=== PATIENT | male | born 1980 | race African-American/Black ===

== ENCOUNTER 2017-01-08 19:43 | Emergency (ER) | payer OTHER ==
[~2017-01-08] VITALS: Ht 170.2 cm; Wt 86.2 kg
[~2017-01-08 19:43] MED LIST: ALBUTEROL SULF8.5 GM INH; CLINDAMYCIN HC300 MG ORAL; IBUPROFEN600 MG ORAL; IBUPROFEN800 MG ORAL; NKM; NORCO 5-325 TA1 EACH ORAL; ZOFRAN ODT4 MG ORAL
[2017-01-08] MEDS ORDERED: NKM (19:56)
[2017-01-08] MEDS ORDERED: Dexamethasone 20mg/5ml IM ONE (20:15)
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
[2017-01-08 20:59] VITALS: BP_SYST 121; BP_SYST 128; BP_DIAS 75; BP_DIAS 80
== END 2017-01-08 20:59 | disposition home or self-care (01) ==
LOC: EMR 20:16
DX: J02.9 Acute pharyngitis, unspecified (principal)
CPT/HCPCS: 96372; 99284; J1100

== ENCOUNTER 2017-09-12 12:28 | Emergency (ER) | payer OTHER ==
[~2017-09-12] VITALS: Ht 167.6 cm; Wt 95.7 kg
[2017-09-12] MEDS ORDERED: Methocarbamol 500mg tab ORAL ONE (13:00)
[2017-09-12] MEDS ORDERED: Acetaminophen 500mg (ES) tab ORAL ONE (13:00)
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
[2017-09-12] MEDS ORDERED: PROMETHAZI6.25 MG/1 ORAL (14:02)
[2017-09-12] MEDS ORDERED: ROBAXIN500 MG PO (14:02)
[2017-09-12] MEDS ORDERED: TYLENOL EXTRA500 MG ORAL (14:02)
[2017-09-12 14:25] VITALS: BP_SYST 132; BP_SYST 143; BP_DIAS 105; BP_DIAS 92
--- NOTE | 2017-09-13 11:19 | Diagnostic Imaging Report ---
Indication: Dyspnea Comparison: None A single view chest radiograph was obtained. Findings: Cardiomediastinal appearance is within normal limits for age. Pulmonary vascularity is appropriate. The diaphragmatic contour is smooth and costophrenic angles are sharp. No pleural effusions are identified. The bones are unremarkable. Impression: No acute findings
== END 2017-09-12 14:25 | disposition home or self-care (01) ==
LOC: EMR 13:20
DX: M54.9 Dorsalgia, unspecified (principal); R05 Cough
CPT/HCPCS: 71045; 99284

== ENCOUNTER 2017-11-12 17:01 | Emergency (ER) | payer OTHER ==
[~2017-11-12] VITALS: Ht 167.6 cm; Wt 88.5 kg
[~2017-11-12 17:01] MED LIST changes: +PROMETHAZI6.25 MG/1 ORAL; +ROBAXIN500 MG PO; +TYLENOL EXTRA500 MG ORAL
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
[2017-11-12] MEDS ORDERED: Lidocaine 1% MPF 10mg/ml 5ml INJ ONE (18:00)
[2017-11-12] MEDS ORDERED: VIBRAMYCIN100 MG ORAL (18:01)
[2017-11-12] MEDS ORDERED: IBUPROFEN600 MG ORAL (18:01)
[2017-11-12] MEDS ORDERED: MUPIROCIN22 GM TOPIC (18:01)
[2017-11-12 18:04] VITALS: BP 124/77
[2017-11-12 18:22] VITALS: BP 124/77
== END 2017-11-12 18:23 | disposition home or self-care (01) ==
LOC: EMR 17:30
DX: L73.9 Follicular disorder, unspecified (principal)
CPT/HCPCS: 96372; 99284; J0696

== ENCOUNTER 2018-02-24 22:29 | Emergency (ER) | payer OTHER ==
[~2018-02-24] VITALS: Ht 167.6 cm; Wt 94.3 kg
[~2018-02-24 22:29] MED LIST changes: +MUPIROCIN22 GM TOPIC; +VIBRAMYCIN100 MG ORAL
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
[2018-02-24 23:12] LABS: APPEARANCE,URINE CLEAR; BILIRUBIN, URINE NEGATIVE (NEGATIVE); COLOR,URINE PALE YELLOW; GLUCOSE, URINE (UA) NEGATIVE (NEGATIVE); KETONES,URINE NEGATIVE (NEGATIVE); LEUKOCYTE ESTERASE ,URINE NEGATIVE (NEGATIVE); NITRITE,URINE NEGATIVE (NEGATIVE); PH,URINE 6 (4.5-8.0); PROTEIN,URINE NEGATIVE (NEGATIVE); UROBILINOGEN,URINE NORMAL MG/DL (0.0-1.0)
[2018-02-24 23:18] VITALS: BP 120/75
[2018-02-24 23:18] LABS: EOSINOPHILS % (AUTO) 1.7 % (0.0-3.0); HEMATOCRIT 40.3 % (42.0-52.0); HEMOGLOBIN 14.1 G/DL (14.2-18.0); LYMPHOCYTES % (AUTO) 43.2 % (20.0-45.0); MEAN CORPUSCULAR VOLUME 89 FL (80-99); MONOCYTES % (AUTO) 8.2 % (1.0-10.0); NEUTROPHILS % (AUTO) 44.9 % (45.0-75.0); PLATELET COUNT 270 K/UL (150-450); RED BLOOD COUNT 4.52 M/UL (4.70-6.10); RED CELL DISTRIBUTION WIDTH 11.3 % (11.6-14.8); WHITE BLOOD COUNT 5.7 K/UL (4.8-10.8)
[2018-02-24 23:30] LABS: ANION GAP 7 mmol/L (5-15); BLOOD UREA NITROGEN 13 mg/dL (7-18); CALCIUM 8.9 MG/DL (8.5-10.1); CARBON DIOXIDE 27 MMOL/L (21-32); CHLORIDE 106 MMOL/L (98-107); POTASSIUM 4.2 MMOL/L (3.5-5.1); SODIUM 140 MMOL/L (136-145)
[2018-02-24 23:46] VITALS: BP 120/75
== END 2018-02-24 23:50 | disposition home or self-care (01) ==
LOC: EMR 22:41
DX: R42 Dizziness and giddiness (principal)
CPT/HCPCS: 36415; 80048; 80307; 81001; 85025; 99284

== ENCOUNTER 2018-06-22 19:42 | Emergency (ER) | payer OTHER ==
[~2018-06-22] VITALS: Ht 170.2 cm; Wt 93.0 kg
[2018-06-22] MEDS ORDERED: NKM (19:48)
[2018-06-22 19:50] VITALS: BP 112/87
[2018-06-22] MEDS ORDERED: Azithromycin 250mg tab ORAL ONE (20:00)
[2018-06-22] MEDS ORDERED: Lidocaine 1% MPF 10mg/ml 5ml INJ ONE (20:00)
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
[2018-06-22 20:20] VITALS: BP 124/79
== END 2018-06-22 22:02 | disposition home or self-care (01) ==
LOC: EMR 20:34
DX: Z20.2 Contact with and (suspected) exposure to infections with a predominantly sexual mode of transmission (principal)
CPT/HCPCS: 96372; 99284; J0696; Q0144; 96374

== ENCOUNTER 2019-08-02 19:50 | Emergency (ER) | payer OTHER ==
[~2019-08-02] VITALS: Ht 170.2 cm; Wt 95.3 kg
[2019-08-02 19:50] VITALS: BP 140/94
[~2019-08-02 19:50] MED LIST changes: +PREDNISONE20 MG ORAL; +PROMETHAZINE-C118 M1 ORAL
--- NOTE | 2019-08-02 19:50 | NUR ---
ED Nurse Note: Patient walked in to ER c/o cough, back pain when coughing. Patient presented calm, AAO x4, VSS at his time.
[2019-08-02] MEDS ORDERED: PROMETHAZINE-C118 M1 ORAL (20:11)
[2019-08-02] MEDS ORDERED: ALBUTEROL SULF8.5 GM INH (20:11)
[2019-08-02] MEDS ORDERED: AMOXICILLIN500 MG ORAL (20:20)
[2019-08-02 20:27] VITALS: BP 140/94
--- NOTE | 2019-08-02 20:27 | NUR ---
ED Nurse Note: Pt cleared by health care Provider for discharge. DC instructions/prescription was given and explained to pt and verbalized understanding of teachings. All medical deviecs such as ID band removed. Pt is AAO x4, ambulatory and left with all personal belongings.
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
== END 2019-08-02 20:38 | disposition home or self-care (01) ==
LOC: EDBD 19:50 → EMR 20:15
DX: J18.9 Pneumonia, unspecified organism (principal); F17.200 Nicotine dependence, unspecified, uncomplicated
CPT/HCPCS: 99282